=== PATIENT | male | born 1980 | race Caucasian/White ===

== ENCOUNTER 2017-01-12 21:07 | Emergency (ER) | payer SELFPAY ==
--- NOTE | 2017-01-17 08:22 | ER ---
ADMIT: 01/12/2017 RM/LOC: ER [facility] MR#: [id number] [address] [address] DAVON[address] CONDON [address] [place] [address] Emergency Room Report SEX: M AGE: 36 : 1980 DATE: 01/12/2017 A 36-year-old with right upper quadrant abdominal pain after eating greasy meal. It has been intermittent for the past several days. It is always associated with eating. See T sheet for history and physical. CBC and CMP are significant only for a potassium of 5.2, and a glucose of 105. CBC is normal. Ultrasound is pending at the time of this dictation/. I see sludge and a stone, but no obvious ductal dilatation or wall thickening or fluid. The patient is diagnosed of biliary colic. Instructed to follow up with Dr. Arita this week. Maciej Holden MD/ sully JOB #: [id number] CC: Roverto Acosta MD, Attending Physician Baldomero Strange MD, Family Physician
== END 2017-01-12 23:00 | disposition home or self-care (01) ==
LOC: ER 21:07
DX: K80.50 Calculus of bile duct without cholangitis or cholecystitis without obstruction (principal)

== ENCOUNTER 2017-01-16 10:17 | Day surgery (SDC) | payer SELFPAY ==
[~2017-01-16] VITALS: Ht 188 cm; Wt 99.8 kg
--- NOTE | 2017-02-04 10:45 | OR ---
ADMIT: 01/16/2017 RM/LOC: [facility] MR#: [id number] [address] [address]ON[address] CONDON [address] [place] [address] Operative/Delivery Room Report SEX: M AGE: 36 : 1980 SURGERY DATE: 01/16/2017 SURGEON: Sinan Arita MD PREOPERATIVE DIAGNOSES: 1. Acute cholecystitis. 2. Cholelithiasis. POSTOPERATIVE DIAGNOSES: 1. Acute cholecystitis. 2. Cholelithiasis. PROCEDURE PERFORMED: Laparoscopic cholecystectomy with intraoperative cholangiogram. ANESTHESIA: General endotracheal. ESTIMATED BLOOD LOSS: Less than 10 mL. ADOBE LAYER: SERENITY Cason DESCRIPTION OF PROCEDURE: After appropriate informed consent was obtained, the patient was brought to the operating room. General endotracheal anesthesia was induced. The patient's abdomen was prepped and draped in a sterile fashion. A small infraumbilical incision was created. Veress needle was introduced. The abdomen was insufflated with CO2. A 5 mm trocar was placed. Camera was introduced, the abdomen surveyed. He had no intraabdominal adhesions. Three additional ports were placed in upper abdomen. The gallbladder was grasped, retracted up over the edge of liver. Infundibulum was grasped and retracted laterally. Cystic duct was skeletonized out. There was some mild inflammation around the cystic duct, so I gently teased the cystic duct away from the inflamed tissue. A single clip was placed on cystic duct on the gallbladder side. A small ductotomy was made. Cholangiogram catheter was introduced. It was difficult to get this catheter to go down into the cystic duct but with some persistence, I was able to get the catheter in and secured. Cholangiogram was then obtained, this revealed a very small caliber cystic duct, good filling the right and left hepatic ducts, decent length of cystic duct, and no evidence of any filling defects with good emptying of contrast into the duodenum. The catheter was ADMIT: 01/16/2017 RM/LOC: [facility] MR#: [id number] [address] [address] [address]ONTE CONDON [address] [place] [address] Operative/Delivery Room Report SEX: M AGE: 36 : 1980 then removed. Three clips were placed on cystic duct on the patient's side and the duct was cut between clips. The cystic artery was next identified, clipped and divided. The gallbladder was then reflected off the liver bed using hook electrocautery. The gallbladder was freed up, was placed in EndoCatch bag and brought out through the subxiphoid port site. The port was reintroduced. The right upper quadrant inspected, it was copiously irrigated out with warm saline. Everything appeared hemostatic. All the wounds were infiltrated with Marcaine. The subxiphoid fascial defect was then closed with [id number] Vicryl suture. The abdomen was next desufflated, ports were removed, skin closed with 4-0 Monocryl in the subcuticular layer. Sterile dressings were then applied. Dean Burch assisted in this entire procedure. His help was necessary for retraction and camera driving. Sinan Arita MD/ sully JOB #: [id number] CC: Sinan Arita, Attending Physician NO FAMILY PHYSICIAN, Family Physician
== END 2017-01-16 18:35 | disposition home or self-care (01) ==
LOC: SSS 10:17
PROC: 0FT44ZZ Resection of Gallbladder, Percutaneous Endoscopic Approach (ICD-10-PCS; principal; 2017-01-16)
PROC: BF121ZZ Fluoroscopy of Gallbladder using Low Osmolar Contrast (ICD-10-PCS; principal; 2017-01-16)
DX: K80.12 Calculus of gallbladder with acute and chronic cholecystitis without obstruction (principal); Z98.890 Other specified postprocedural states